=== PATIENT | female | born 1975 | race Hispanic/Latino ===

== ENCOUNTER 2017-07-04 08:35 | Emergency (ER) | payer MEDICAID, OTHER ==
[2017-07-04 08:36] VITALS: BMI 28.9
[2017-07-04 08:52] VITALS: BP 117/83; PULSE 79; RESP 18; TEMP 98.3; O2SAT 100
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
== END 2017-07-04 09:08 | disposition home or self-care (01) ==
LOC: ED 08:35
DX: Z04.1 Encounter for examination and observation following transport accident (principal)

== ENCOUNTER 2017-11-07 11:22 | Emergency (ER) | payer OTHER ==
[2017-11-07 11:38] VITALS: RESP 18
[2017-11-07 12:28] VITALS: TEMP 98
[2017-11-07] MEDS ORDERED: Sodium Chloride 0.9% 1,000 ML IV STA (13:00)
--- NOTE | 2017-11-07 13:07 | ED PDOC ---
Arrival/HPI - General Chief Complaint: Flu-like Symptoms Time Seen by Provider: 11/07/17 12:26 Historian: Patient - Critical Care Critical Care Minutes: 30 minutes - History of Present Illness Narrative History of Present Illness (Text): 11/07/17 13:03 Pt is a 42 yo F who complains of cough x 1 wk that progressed to productive sputum x 3 days. Pt reports having a colonoscopy last week and felt her symptoms started thereafter. Subjective fever and diarrhea x 1 day and general aches, headache, tightness in chest. Denies shortness of breath, cp, nausea and vomiting, sore throat. Sick contacts and no flu vaccine this year. PMH of asthma 11/07/17 13:09 Time/Duration: Prior to Arrival Symptom Course: Unchanged Quality: Pressure Severity Level: Mild Activities at Onset: Rest, Light Context: Home Past Medical History - Provider Review Nursing Documentation Reviewed: Yes - Travel History Have you recently traveled outside [place] w/in the past 3 mons?: No - Infectious Disease Hx of Infectious Diseases: None - Tetanus Immunization Tetanus Immunization: Unknown - Cardiac Hx Cardiac Disorders: Yes Hx Heart Murmur: Yes (NO PROBLEM) - Pulmonary Hx Respiratory Disorders: Yes Hx Asthma: Yes Hx Sleep Apnea: No - Neurological Hx Neurological Disorder: No - HEENT Hx HEENT Disorder: No Other/Comment: GLASSES - Renal Hx Renal Disorder: No - Endocrine/Metabolic Hx Endocrine Disorders: Yes Hx Hypothyroidism: Yes - Hematological/Oncological Hx Blood Disorders: Yes Hx Anemia: Yes (RESOLVED) Other/Comment: FIBROMYALGIA - Integumentary Hx Dermatological Disorder: Yes Hx Psoriasis: Yes - Musculoskeletal/Rheumatological Hx Musculoskeletal Disorders: Yes Hx Herniated Disk: Yes (cervical spine) Other/Comment: FIBROMYALGIA - Gastrointestinal Hx Gastrointestinal Disorders: Yes Hx Colitis: Yes (INFLAMMATORY BOWEL DISEASE) Other/Comment: cholecystectomy 1995 - Genitourinary/Gynecological Hx Genitourinary Disorders: Yes Hx Hematuria: Yes Hx Urinary Tract Infection: Yes - Psychiatric Hx Psychophysiologic Disorder: No Hx Substance Use: No - Surgical History Hx Section: Yes (x 1) Hx Cholecystectomy: Yes Hx Dilation and Curettage: Yes (ESSURE CONTROL) Hx Musculoskeletal Surgery: Yes (CARPAL TUNNEL BILAT.) Hx Orthopedic Surgery: Yes (DENIA. CARPAL KEYSHA) Hx Tonsillectomy: Yes Other/Comment: CYST REMOVED FROM THROAT - Anesthesia Hx Anesthesia: Yes Hx Anesthesia Reactions: No Hx Malignant Hyperthermia: No - Suicidal Assessment Feels Threatened In Home Enviroment: No Family/Social History - Physician Review Nursing Documentation Reviewed: Yes Family/Social History: Unknown Family HX Smoking Status: Never Smoked Hx Alcohol Use: Yes Hx Substance Use: No Hx Substance Use Treatment: No Allergies/Home Meds Allergies/Adverse Reactions: Allergies No Known Allergies Allergy (Verified 11/07/17 11:39) Home Medications: Home Meds Medication Instructions Recorded Confirmed Levothyroxine [Synthroid] 125 mcg PO DAILY 07/04/17 11/07/17 Review of Systems - Review of Systems Constitutional: Normal Eyes: Normal ENT: Normal Respiratory: Normal, Cough (5+days) Cardiovascular: Normal Gastrointestinal: Diarrhea (1 day), Appetite Changes Genitourinary Female: Normal Musculoskeletal: Normal Skin: Normal Neurological: Normal Endocrine: Normal Hemo/Lymphatic: Normal Psychiatric: Normal Physical Exam Vital Signs Reviewed: Yes Vital Signs Temp Pulse Resp BP Pulse Ox 11/07/17 15:25 68 18 119/80 98 11/07/17 14:01 75 18 117/73 97 11/07/17 12:28 98.0 F 79 18 115/79 97 11/07/17 11:38 97.5 F L 86 18 113/82 97 Temperature: Afebrile Blood Pressure: Normal Pulse: Regular Respiratory Rate: Normal Appearance: Positive for: Well-Appearing, Non-Toxic, Comfortable Pain Distress: None Mental Status: Positive for: Alert and Oriented X 3 - Systems Exam Head: Present: Atraumatic, Normocephalic Pupils: Present: PERRL Extroacular Muscles: Present: EOMI Conjunctiva: Present: Normal Mouth: Present: Moist Mucous Membranes Pharnyx: Present: ERYTHEMA (posterior) Neck: Present: Normal Range of Motion Respiratory/Chest: Present: Clear to Auscultation, Good Air Exchange. No: Respiratory Distress, Accessory Muscle Use Cardiovascular: Present: Regular Rate and Rhythm, Normal S1, S2. No: Murmurs Abdomen: Present: Normal Bowel Sounds. No: Tenderness, Distention, Peritoneal Signs Back: Present: Normal Inspection Upper Extremity: Present: Normal Inspection. No: Cyanosis, Edema Lower Extremity: Present: Normal Inspection. No: Edema Neurological: Present: GCS=15, CN II-XII Intact, Speech Normal Skin: Present: Warm, Dry, Normal Color. No: Rashes Psychiatric: Present: Alert, Oriented x 3, Normal Insight, Normal Concentration Medical Decision Making ED Course and Treatment: 11/07/17 13:07 Pt is a 42 yo F who complains of cough x 1 wk that progressed to productive sputum x 3 days. PE positive for mild post pharyngeal erythema otherwise unremarkable Plan: Rapid flu fluids cxr Discussed results with pt and advised her on homecare and to follow up with her PMD in the next 2 days. VSS and pt ambulated well out of the ED - Lab Interpretations Lab Results: Lab Results 11/07/17 13:00: Influenza Typ A,B (EIA) Negative for flu a/b I have reviewed the lab results: Yes (Neg for Flu) - RAD Interpretation Narrative RAD Interpretations (Text): 11/07/17 14:10 CXR unremarkable for disease Radiology Orders: 11/07/17 13:01 CXR [CHEST TWO VIEWS (PA/LAT)] [RAD] Stat Disposition/Present on Arrival - Present on Arrival Any Indicators Present on Arrival: Yes History of DVT/PE: No History of Uncontrolled Diabetes: No Urinary Catheter: No History of Decub. Ulcer: No History Surgical Site Infection Following: Orthopedic Procedures - Disposition Have Diagnosis and Disposition been Completed?: Yes Diagnosis: URI (upper respiratory infection), Cough Disposition: HOME/ ROUTINE Disposition Time: 14:38 Patient Plan: Discharge Condition: GOOD Discharge Instructions (ExitCare): Benzonatate (By mouth), Azithromycin (By mouth), Upper Respiratory Infection (ED) Additional Instructions: Dear Patient, If you experience worsening of symptoms such as high fever, shortness of breath , chest pain or bleeding, return to the ED for further evaluation. Please follow the handouts provided and have a speedy recovery. Follow up with your doctor in the next few days. All the best in your recovery Prescriptions: Azithromycin [Z-Khadar] 250 mg PO DAILY 5 Days #6 tab Benzonatate [Tessalon Perle] 100 mg PO Q8 4 Days #12 capsule Referrals: Mariposa Angulo, [Non-Staff] - Follow up with primary Forms: [employer] (Chadian), WORK NOTE
--- NOTE | 2017-11-07 13:56 | RAD ---
HISTORY: cough COMPARISON: 03/21/2016 TECHNIQUE: Chest PA and lateral FINDINGS: LUNGS: No active pulmonary disease. PLEURA: No significant pleural effusion identified. No pneumothorax apparent. CARDIOVASCULAR: Normal. OSSEOUS STRUCTURES: No significant abnormalities. VISUALIZED UPPER ABDOMEN: Normal. OTHER FINDINGS: None. IMPRESSION: No active disease.
[2017-11-07 15:27] VITALS: BP 119/80; PULSE 68; O2SAT 98
== END 2017-11-07 15:25 | disposition home or self-care (01) ==
LOC: ED 11:22
DX: J06.9 Acute upper respiratory infection, unspecified (principal); R05 Cough